=== PATIENT | female | born 1995 | race Caucasian/White ===

== ENCOUNTER 2020-01-09 17:40 | Emergency (ER) | payer BC, OTHER ==
[2020-01-09 18:17] VITALS: BP 112/72; PULSE 79; RESP 18; TEMP 98.3
[2020-01-09] MEDS ORDERED: ACET/COD 300 MG/30 MG STARTER PACK 6 TAB BTL PO STA (19:08)
[2020-01-09] MEDS ORDERED: IBUPROFEN 600 MG STARTER PACK 4 TAB BTL PO STA (19:08)
--- NOTE | 2020-01-09 19:11 | ED ---
ENT HPI - General Chief complaint: Dental/Oral Stated complaint: tongue injury/bleeding Time Seen by Provider: 01/09/20 18:22 Source: patient Mode of arrival: ambulatory Limitations: no limitations - History of Present Illness Initial comments: 24-year-old female patient presents to the emergency department today for evaluation of tongue injury. Patient states that earlier today her tongue ring got caught on her tooth and caused injury to the tongue. She had the tongue ring placed over 10 years ago. Patient states she has been having bleeding to the tongue intermittently since. States that the tongue has become swollen. States she feels like she is having pain down into her throat with this. Denies any difficulty breathing. Denies fever or chills. Denies use of blood thinning medications. Denies taking any medication for her symptoms. She did remove the tongue ring. - Related Data Previous Rx's Medication Instructions Recorded Ibuprofen [Motrin] 600 mg PO Q6HR PRN #30 tab 03/16/14 Acetaminophen-Codeine 300-30mg 1 tab PO Q4H PRN #10 tablet 03/21/15 [Tylenol #3] Ibuprofen [Motrin] 600 mg PO Q8HR PRN #20 tab 03/21/15 Ibuprofen [Motrin] 600 mg PO Q8HR PRN #30 tab 01/09/20 Allergies Allergy/AdvReac Type Severity Reaction Status Date / Time metal AdvReac Rash/Hives Uncoded 01/09/20 18:16 Review of Systems ROS Statement: Those systems with pertinent positive or pertinent negative responses have been documented in the HPI. ROS Other: All systems not noted in ROS Statement are negative. Past Medical History Past Medical History: No Reported History History of Any Multi-Drug Resistant Organisms: None Reported Additional Past Surgical History / Comment(s): eye surgery Past Anesthesia/Blood Transfusion Reactions: No Reported Reaction Past Psychological History: Anxiety, Depression Smoking Status: Current some day smoker Past Alcohol Use History: None Reported, Occasional Past Drug Use History: None Reported - Past Family History Father Brother(s) Family Medical History: Coronary Artery Disease (CAD), Diabetes Mellitus General Exam Limitations: no limitations General appearance: alert, in no apparent distress, other (This is a well- developed, well-nourished adult female patient in no acute distress. Vital signs upon presentation are temperature 98.3F, pulse 79, respirations 18, blood pressure 112/72, pulse ox 98% on room air.) ENT exam: Present: mucous membranes moist, other (There is tongue swelling, there is puncture where the tongue ring was placed. No current bleeding. ). Absent: normal exam, normal oropharynx Respiratory exam: Present: normal lung sounds bilaterally, other (Easy and nonlabored). Absent: respiratory distress, wheezes, rales, rhonchi, stridor Cardiovascular Exam: Present: regular rate, normal rhythm, normal heart sounds. Absent: systolic murmur, diastolic murmur, rubs, gallop, clicks GI/Abdominal exam: Present: soft, normal bowel sounds. Absent: distended, tenderness, guarding, rebound, rigid Neurological exam: Present: alert, oriented X3, CN II-XII intact Psychiatric exam: Present: normal affect, normal mood Skin exam: Present: warm, dry, intact, normal color. Absent: rash Course Vital Signs 01/09/20 18:13 Temperature 98.3 F Pulse Rate 79 Respiratory 18 Rate Blood Pressure 112/72 O2 Sat by Pulse 98 Oximetry Medical Decision Making - Medical Decision Making 24-year-old female patient presents to the emergency department today for evaluation after injuring her tongue. States that her tongue ring got caught on a tooth and pulled. States she's been having bleeding intermittent presents. Physical examination does reveal tongue swelling. No current bleeding. We did discuss rinsing mouth with ice water to stop bleeding and for swelling. She is instructed to stick to cool soothing foods. She is instructed to avoid acidic foods. She was instructed to get Listerine to rinse mouth with to prevent infection. She is instructed to follow-up with ENT specialty for further evaluation after her symptoms don't improve over the next 1-2 days. She is given prescription for ibuprofen. She is instructed follow up with her primary care physician for recheck in 1-2 days. She verbalizes understanding and agrees this plan. Disposition Clinical Impression: Tongue laceration Disposition: HOME SELF-CARE Condition: Good Instructions (If sedation given, give patient instructions): Laceration (ED) Additional Instructions: Rinse mouth frequently with ice water to aid with swelling. Drink frozen drinks to aid with discomfort. Avoid acidic foods. Follow up with ENT if symptoms do not improve over the next 1-2 days. Return to the emergency department for any new, worsening, or concerning symptoms. Prescriptions: Ibuprofen [Motrin] 600 mg PO Q8HR PRN #30 tab PRN Reason: Pain Is patient prescribed a controlled substance at d/c from ED?: No Referrals: Yrn Prkaash MD [Primary Care Provider] - 1-2 days Time of Disposition: 19:11
== END 2020-01-09 19:23 | disposition home or self-care (01) ==
LOC: EC 17:40
DX: S01.512A Laceration without foreign body of oral cavity, initial encounter (principal); F17.200 Nicotine dependence, unspecified, uncomplicated; Z91.09 Other allergy status, other than to drugs and biological substances; X58.XXXA Exposure to other specified factors, initial encounter
CPT/HCPCS: 99283